=== PATIENT | male | born 2000 | race Caucasian/White ===

== ENCOUNTER 2023-06-11 11:14 | Emergency (ER) | payer OTHER, BC ==
[2023-06-11] MEDS ORDERED: Lidocaine 1% 10 ML MDV INJECT ONE (11:39)
[2023-06-11] MEDS ORDERED: Diphtheria,Pertussis(Acell),Tetanus Vaccine 0.5 ML Syringe IM ONE (11:39)
[2023-06-11 13:05] VITALS: BP 128/70; PULSE 69
== END 2023-06-11 12:34 | disposition home or self-care (01) ==
LOC: JD.ED 11:14
DX: S61.210A Laceration without foreign body of right index finger without damage to nail, initial encounter (principal); Z23 Encounter for immunization; F17.210 Nicotine dependence, cigarettes, uncomplicated; Z79.899 Other long term (current) drug therapy; W26.8XXA Contact with other sharp object(s), not elsewhere classified, initial encounter; Y92.89 Other specified places as the place of occurrence of the external cause; Y99.0 Civilian activity done for income or pay
CPT/HCPCS: 12001; 90471; 90715; 99282; 99283-25; J3490

== ENCOUNTER 2024-05-23 23:12 | Emergency (ER) | payer OTHER, BC ==
[2024-05-23 23:26] LABS: BASOPHILS ABSOLUTE AUTO 0.1 K/mm3 (0.0-0.2); BASOPHILS PERCENT AUTO 0.4 % (0.0-1.0); EOSINOPHILS ABSOLUTE AUTO 0.1 K/mm3 (0.0-0.4); EOSINOPHILS PERCENT AUTO 0.4 % (0.0-6.0); HEMATOCRIT 46.8 % (42.0-52.0); HEMOGLOBIN 16.2 gm/dl (14.0-18.0); IMMATURE GRAN ABSOLUTE AUTO 0.15 K/mm3 (0.00-0.05); IMMATURE GRAN PERCENT AUTO 0.9 % (0.0-0.4); LYMPHOCYTES ABSOLUTE AUTO 2.3 K/mm3 (1.0-4.8); MEAN CORPUSCULAR HEMOGLOBIN 30.6 pg (28.0-32.0); MEAN CORPUSCULAR HGB CONC 34.6 g/dl (32.0-36.0); MEAN CORPUSCULAR VOLUME 88.3 fl (83.0-99.0); MEAN PLATELET VOLUME 9.3 fl (9.4-12.4); MONOCYTES ABSOLUTE AUTO 0.7 K/mm3 (0.0-0.8); MONOCYTES PERCENT AUTO 4.4 % (0.0-8.0); NEUTROPHILS PERCENT AUTO 79.9 % (41.0-71.0); PLATELET COUNT,PLT 301 K/mm3 (150-400)
[2024-05-23 23:42] LABS: INR 0.98; PROTHROMBIN TIME 10.4 SECONDS (9.7-12.0)
[2024-05-23 23:43] LABS: PTT,PARTIAL THROMBOPLSTIN TIME 27.2 SECONDS (21.7-31.4)
[2024-05-23 23:48] LABS: A/G RATIO 1.3 (1-2); ALBUMIN 4.2 g/dl (3.4-5.0); BILIRUBIN TOTAL 0.3 mg/dL (0.2-1.0); EST CRCL DRUG DOSING (CG) 118.58 mL/min; ETHANOL BLOOD MEDICAL 0.11 gm% (0.00); PROTEIN TOTAL,TP 7.5 g/dl (6.4-8.2)
[2024-05-23] MEDS: Iopamidol 612 MG/ML 30 ML SDV IVPUSH ONE (23:50)
[2024-05-23] MEDS: Sodium Chloride 0.9% 10 ML Syringe FLUSH ONE (23:50)
[2024-05-23] MEDS: Iopamidol 612 MG/ML 100 ML Bottle IVPUSH ONE (23:50)
[2024-05-24] MEDS: Lactated Ringers 1,000 ML IV ONE
[2024-05-24 00:51] LABS: APPEARANCE,URINE CLEAR (Clear); BILIRUBIN,URINE NEGATIVE (Negative); COLOR,URINE LIGHT YELLOW (Yellow); GLUCOSE,URINE NEGATIVE (Negative); KETONES,URINE NEGATIVE (Negative); LEUKOCYTE ESTERASE,URINE NEGATIVE (Negative); NITRITE,URINE NEGATIVE (Negative); OCCULT BLOOD,URINE 2+ (Negative); PH,URINE 6.5 (5.0-8.0); PROTEIN,URINE 1+ (Negative); UROBILINOGEN,URINE 0.2 (0.2-1.0)
[2024-05-24] MEDS: Lidocaine 1% with EPINEPHrine 1:100,000 20 ML MDV INJECT ONE (00:56)
[2024-05-24 00:59] LABS: BARBITURATE SCREEN,URINE NEGATIVE (CUTOFF=200); BENZODIAZEPINES SCREEN,URINE NEGATIVE (CUTOFF=150); BUPRENORPHINE SCREEN,URINE NEGATIVE (CUTOFF=10); METHADONE SCREEN, URINE NEGATIVE (CUT0FF=200); METHAMPHETAMINES SCREEN, URINE PRESUMPTIVE POSITIVE (CUTOFF=500); OXYCODONE SCREEN,URINE NEGATIVE (CUT0FF=100); THC SCREEN,URINE 20 NG/ML PRESUMPTIVE POSITIVE (CUTOFF=50)
[2024-05-24 01:02] LABS: AMPHETAMINES SCREEN, URINE NEGATIVE (CUTOFF=500)
[2024-05-24 01:07] LABS: BACTERIA,URINE RARE /hpf (FEW); EPITHELIAL CELLS,URINE NOT SEEN /hpf (0-5); WBC,URINE 0-5 /hpf (0-5)
[2024-05-24 01:08] LABS: MUCUS,URINE NOT SEEN /hpf (FEW)
[2024-05-24] MEDS: Potassium Chloride 20 MEQ Tab.ER PO ONE (01:55)
[2024-05-24] MEDS: Bacitracin Oint 15 GM Tube TOP ONE (04:58)
[2024-05-24] MEDS: Ketorolac 30 MG/ML SDV IVPUSH ONE (04:58)
[2024-05-24] MEDS: Sulfamethoxazole/Trimethoprim 800-160 MG Tab PO ONE (04:58)
[2024-05-24] MEDS: Acetaminophen 325 MG Tab PO ONE (05:18)
[2024-05-24] MEDS: Iopamidol 755 Mg/ML 100 ML Bottle IVPUSH ONE (09:13)
[2024-05-24] MEDS: Sodium Chloride 0.9% 100 ML IV SCH (09:14)
[2024-05-24 20:09] VITALS: BP 118/65; PULSE 58
[2024-05-26 20:43] LABS: QNTIFERON MITOGEN MIN NIL 9.99 IU/mL; QNTIFERON NIL 0.01 IU/mL; QNTIFERON TB GOLD PLUS Negative (Negative)
== END 2024-05-24 14:00 | disposition home or self-care (01) ==
LOC: JD.ED 23:12
DX: S62.101A Fracture of unspecified carpal bone, right wrist, initial encounter for closed fracture (principal); S81.011A Laceration without foreign body, right knee, initial encounter; F10.120 Alcohol abuse with intoxication, uncomplicated; J98.4 Other disorders of lung; F17.200 Nicotine dependence, unspecified, uncomplicated; Z79.899 Other long term (current) drug therapy; V49.40XA Driver injured in collision with unspecified motor vehicles in traffic accident, initial encounter; Y92.410 Unspecified street and highway as the place of occurrence of the external cause
CPT/HCPCS: 12002; 29125; 36415; 70450; 71045; 71260; 71275; 72125; 73100; 73562; 74177; 80053; 80306; 80307; 81001; 83605; 83690; 83735; 84484; 85025; 85610; 85730; 86140; 86480; 86850; 86900; 86901; 87040; 93005; 93306; 96361; 96374; 99285; A9270; J1885; J7120; Q9967; 93010; 99284; J3490